=== PATIENT | female | born 1985 | race Caucasian/White ===

== ENCOUNTER 2016-11-07 19:10 | Emergency (ER) | payer OTHER ==
[~2016-11-07] VITALS: Ht 167.6 cm; Wt 90.7 kg
[~2016-11-07 19:10] MED LIST: ANUSOL-HC30 GM PR; CALCIUM500 MG PO; NORCO 10-325 T1 EACH PO; TRIAMCINOLONE A15 G1 TOP; VITAMIN D32000 UNIT PO; ZOFRAN ODT4 MG PO
[2016-11-07] MEDS ORDERED: CETIRIZINE HCL10 MG PO (20:17)
[2016-11-07] MEDS ORDERED: FLONASE ALLERG9.9 ML NAS (20:17)
== END 2016-11-07 20:20 | disposition home or self-care (01) ==
LOC: ED 19:10
DX: J30.2 Other seasonal allergic rhinitis (principal); F17.200 Nicotine dependence, unspecified, uncomplicated; Z79.899 Other long term (current) drug therapy
CPT/HCPCS: 99283

== ENCOUNTER 2017-06-14 17:23 | Emergency (ER) | payer OTHER ==
[~2017-06-14] VITALS: Ht 167.6 cm; Wt 90.7 kg
[~2017-06-14 17:23] MED LIST changes: +CETIRIZINE HCL10 MG PO; +FLONASE ALLERG9.9 ML NAS
[2017-06-14] MEDS ORDERED: ROBAXIN-750750 MG PO (17:54)
== END 2017-06-14 18:14 | disposition home or self-care (01) ==
LOC: ED 17:23
DX: S83.92XA Sprain of unspecified site of left knee, initial encounter (principal); S39.012A Strain of muscle, fascia and tendon of lower back, initial encounter; F17.200 Nicotine dependence, unspecified, uncomplicated; X58.XXXA Exposure to other specified factors, initial encounter
CPT/HCPCS: 99283

== ENCOUNTER 2017-06-25 13:27 | Emergency (ER) | payer OTHER ==
[~2017-06-25] VITALS: Ht 167.6 cm; Wt 90.7 kg
[~2017-06-25 13:27] MED LIST changes: +ROBAXIN-750750 MG PO
[2017-06-25] MEDS ORDERED: METHYLPREDNISOLO4 M1 PO (14:03)
[2017-06-25] MEDS ORDERED: BACLOFEN10 MG PO (14:03)
[2017-06-25] MEDS ORDERED: NORCO 5-325 TA1 EACH PO (14:03)
== END 2017-06-25 14:11 | disposition home or self-care (01) ==
LOC: ED 13:27
DX: M54.41 Lumbago with sciatica, right side (principal); M62.830 Muscle spasm of back
CPT/HCPCS: 99283